=== PATIENT | male | born 1955 | race Caucasian/White ===

== ENCOUNTER 2016-10-11 12:20 | Emergency (ER) | payer MEDICARE ==
[2016-10-11] MEDS ORDERED: NALOXONE 0.4 MG/ML VIAL. IV ONE (12:30)
--- NOTE | 2016-10-11 12:42 | EKG ---
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
--- NOTE | 2016-10-11 12:56 | PHYS DOC ---
Adult General Chief Complaint Chief Complaint: confusion HPI HPI 60-year-old male presenting to the emergency department confused. He was found by his sister at home who called EMS. No medications given prior to arrival. No history of suicide note her medications found at the house. No history of trauma. The patient does have morphine at home that he takes. He was placed on 2 L nasal cannula by EMS. Review of systems is negative for chest pain shortness of breath fevers chills abdominal pain. Positive for nausea with vomiting. All other review of systems is negative unless otherwise noted in history of present illness. ED course: 60-year-old gentleman presenting to the emergency department with confusion and altered mental status. Patient is afebrile in the emergency department. On initial evaluation the patient has pinpoint pupils and his predicted headache and mildly hypoxic suggestive of opioid intoxication. The patient was given 0.4 mg of Narcan which improved the patient's mental status significantly. Otherwise head CT bloodwork EKG and chest x-ray were ordered and obtained. Chest x-ray shows a new mass on the patient's left upper apex. CBC shows mild nonspecific leukocytosis. Lactic acid within normal limits. IV fluids administered in the emergency department. CT head negative. In the emergency department course, the patient became somnolent again and was initiated on a Narcan drip. I felt the patient would probably need hematology oncology consultation which we cannot obtain at our hospital so the patient was admitted to [facility] for further evaluation workup and care. Dr. Tang is accepting physician. Review of Systems Review of Systems SEE ABOVE Current Medications Current Medications Current Medications Medications (Trade) Dose Ordered Sig/Danelle Start Time Stop Time Status Last Admin Dose Admin Naloxone HCl (Narcan) 0.4 mg 1X ONCE 10/11/16 12:30 10/11/16 12:31 UNV Sodium Chloride 1,000 ml @ 1,000 mls/hr 1X ONCE 10/11/16 12:30 10/11/16 13:29 UNV Physical Exam Physical Exam Constitutional: Well developed, well nourished, patient is somnolent initially prior to the Narcan. After Narcan the patient opens eyes spontaneously and follows commands. HENT: Normocephalic, atraumatic, bilateral external ears normal, oropharynx moist, no oral exudates, nose normal. [] Eyes: Pinpoint initially. After Narcan, equal round and reactive. EOMI, conjunctiva normal, no discharge. [] Neck: Normal range of motion, no tenderness, supple, no stridor. [] Cardiovascular:Heart rate regular rhythm, no murmur [] Lungs & Thorax: Bilateral breath sounds clear to auscultation [] Abdomen: Bowel sounds normal, soft, no tenderness, no masses, no pulsatile masses. [] Skin: Warm, dry, no erythema, no rash. [] Back: No tenderness, no CVA tenderness. [] Extremities: No tenderness, no cyanosis, no clubbing, ROM intact, no edema. [] Neurologic: Alert and oriented X 3, normal motor function, normal sensory function, no focal deficits noted. [] Psychologic: Affect normal, judgement normal, mood normal. [] EKG EKG EKG shows sinus rhythm with tachycardia. Mcewen normal. ST segments congruent. Intervals show mild incomplete conduction delay of the QRS. Not suggestive of ACS. Reviewed by myself. [] Radiology/Procedures Radiology/Procedures [] Course & Med Decision Making Course & Med Decision Making Pertinent Labs and Imaging studies reviewed. (See chart for details) [] Dragon Disclaimer Dragon Disclaimer This chart was dictated in whole or in part using Voice Recognition software in a busy, high-work load, and often noisy Emergency Department environment. It may contain unintended and wholly unrecognized errors or omissions. Departure Departure: Impression: Primary Impression: Opioid abuse with intoxication with complication Additional Impressions: Opioid abuse with intoxication delirium Lung mass Metabolic encephalopathy Toxic metabolic encephalopathy Disposition: ADMITTED INPATIENT Condition: IMPROVED Referrals: CHATO FERGUSON MD (PCP) Critical Care Time Critical care time was [41] minutes exclusive of procedures. Critical care time was spent evaluating the patient, ordering the administration of Narcan, reevaluating the patient, starting the patient on a Narcan drip, reviewing the patient's labs and chest x-ray, and documenting. Problem Qualifiers KAM JOSE MD Oct 11, 2016 12:56
--- NOTE | 2016-10-11 13:04 | RAD ---
Portable chest radiograph 10/11/2016 Clinical history: Hypoxia. Possible aspiration. Two portable AP erect digital radiographs of the chest were obtained. Comparison study is dated 04/15/2013. The cardiac silhouette is normal in size. The thoracic aorta is mildly tortuous. Atherosclerotic calcification of the thoracic aorta is seen. A 6 cm masslike opacity is seen involving the left upper lobe. The left hilum is enlarged. These findings are new since the previous study. The right lung is clear. No pneumothorax or pleural effusion is seen. Degenerative changes are seen involving the thoracic spine and both shoulders. Impression: 6 cm masslike opacity is seen involving the left upper lobe. The left hilum is enlarged. These findings are concerning for bronchogenic carcinoma and could be further evaluated with a CT scan of the chest with contrast.
[2016-10-11 13:05] LABS: BASO % 0 % (0-3); EOS # 0.1 x10^3/uL (0.0-0.7); EOS % 1 % (0-3); HEMATOCRIT 34.5 % (39.0-53.0); HEMOGLOBIN 11.5 g/dL (13.0-17.5); LYMPH # 1.4 x10^3/uL (1.0-4.8); LYMPH % 12 % (24-48); MEAN CORPUSCULAR HEMOGLOBIN 28 pg (25-35); MEAN CORPUSCULAR HGB CONC 33 g/dL (31-37); MEAN CORPUSCULAR VOLUME 84 fL (79-100); MONO # 0.7 x10^3/uL (0.0-1.1); MONO % 5 % (0-9); NEUT # 10.1 x10^3uL (1.8-7.7); NEUT % 82 % (31-73); PLATELET COUNT 216 x10^3/uL (140-400); RED BLOOD COUNT 4.12 x10^6/uL (4.30-5.70); RED CELL DISTRIBUTION WIDTH 14.5 % (11.5-14.5); WHITE BLOOD COUNT 12.3 x10^3/uL (4.0-11.0)
[2016-10-11 13:22] LABS: BACTERIA,URINE 0 /HPF (0-FEW); BILIRUBIN,URINE NEG (NEG); CLARITY,URINE CLEAR; COLOR,URINE AMBER; GLUCOSE,URINE NEG (NEG); NITRITE,URINE NEG (NEG); SQUAMOUS EPITHELIAL CELL,UR OCC /LPF; UROBILINOGEN,URINE 1 mg/dL (0.2 mg/dL); WBC,URINE 0 /HPF (0-4)
[2016-10-11 13:23] LABS: AMORPHOUS SEDIMENT,UR PRESENT /HPF; HYALINE CASTS, URINE FEW /HPF
[2016-10-11 13:24] LABS: ACETAMIN < 2.0 mcg/mL (10-30); ETHANOL < 10 mg/dL (0-10); SALIC 1.3 mg/dL (2.8-20.0)
[2016-10-11] MEDS ORDERED: IV NORMAL SALINE 1,000ML 1,000 ML IV ONE (13:30)
[2016-10-11 13:35] LABS: ALBUMIN 2.9 g/dL (3.4-5.0); CALCIUM 8.7 mg/dL (8.5-10.1); CREATININE 1.7 mg/dL (0.7-1.3); DIRECT BILIRUBIN 0.2 mg/dL (0.0-0.2); GFR 41.3; POTASSIUM 3.1 mmol/L (3.5-5.1); TOTAL BILIRUBIN 0.5 mg/dL (0.2-1.0); TOTAL PROTEIN 7.3 g/dL (6.4-8.2)
--- NOTE | 2016-10-11 14:27 | RAD ---
CT scan of the head without contrast 10/11/2016 Clinical History: Altered mental status. Technique: Unenhanced, contiguous, 5 mm axial sections were obtained through the head. One or more of the following individualized dose reduction techniques were utilized for this study: 1. Automated exposure control. 2. Adjustment of the mA and/or kV according to patient size. 3. Use of iterative reconstruction technique. Findings: Comparison study is dated 06/19/2011. There is generalized parenchymal atrophy. Small scattered areas of decreased attenuation are seen within the periventricular and subcortical white matter of both cerebral hemispheres consistent with areas of small vessel ischemic disease. No acute parenchymal abnormality is seen. No extra-axial fluid collection is noted. Impression: No acute intracranial abnormality is seen.
--- NOTE | 2016-10-11 14:28 | RAD ---
Indication abnormal chest x-ray. Noncontrast imaging through the chest was performed. Note is made of a plain film examination of the left chest which was abnormal approximately 90 minutes prior to this exam. Compatible with the finding on plain film is a soft tissue mass in the left upper lobe measuring 5 cm in greatest dimension. There is left hilar and a bulky area of adenopathy in the aorticopulmonary window. There is, additionally, patchy infiltrate in the left upper lobe which likely reflects postobstructive pneumonitis. The constellation of findings is most compatible with primary malignancy with associated metastatic disease to the left hilum and mediastinum. Apart from some minimal scarring the right lung is clear. Imaging through the upper abdomen is unremarkable. IMPRESSION: 5 cm parenchymal mass in the left upper lobe most compatible with primary malignancy. Hilar and mediastinal adenopathy is compatible with local extension into these areas. Patchy infiltrate in the left upper lobe likely reflecting postobstructive pneumonitis. PQRS Compliance Statement: One or more of the following individualized dose reduction techniques were utilized for this examination: 1. Automated exposure control 2. Adjustment of the mA and/or kV according to patient size 3. Use of iterative reconstruction technique
[2016-10-11] MEDS ORDERED: NALOXONE 2 MG in IV DEXTROSE 5% 500 ML IV ONE (14:30)
[2016-10-11 15:27] VITALS: BP 134/75
== END 2016-10-11 15:38 | disposition other institution (70) ==
LOC: ER 12:20
DX: F11.121 Opioid abuse with intoxication delirium (principal); R91.8 Other nonspecific abnormal finding of lung field; G92 Toxic encephalopathy
CPT/HCPCS: 36415; 51701; 70450; 71010; 71250; 80048; 80076; 81001; 83605; 83690; 83880; 83930; 84484; 85027; 93005; 96361; 96365; 96376; 99291; G0480; J2310; J7030

== ENCOUNTER 2017-06-19 13:49 | Inpatient (IN) | payer MEDICARE ==
[~2017-06-19] VITALS: Ht 182.9 cm; Wt 96.3 kg
[2017-06-19] VITALS (7 sets, daily range): BP systolic 82–104; BP diastolic 46–65
--- NOTE | 2017-06-19 14:08 | ED.ADGEN ---
Past History Past Medical History: Depression, GERD, High Cholesterol, Hypertension, Hypothyroid Past Surgical History: Other Drug Use: None Adult General Chief Complaint Chief Complaint low blood pressure HPI HPI Patient is a 61 year old male who presents with hypotension. Patient was being seen in his infusion clinic for chemotherapy for lung cancer. Patient was found to have blood pressure in the 70s. Patient was taken off his blood pressure medication yesterday by his oncologist due to a blood pressure in the 80s. He reports some lightheadedness and dizziness when he gets up and moves around but otherwise feels like his normal self. Last week he did have some diarrhea but this is since resolved, he denies any chest pain, no shortness of breath, no abdominal pain, no fevers. No dysuria , no signs of blood loss Oncologist is Dr. Peters Review of Systems Review of Systems Constitutional: Denies fever or chills [] Eyes: Denies change in visual acuity, redness, or eye pain [] HENT: Denies nasal congestion or sore throat [] Respiratory: Denies cough or shortness of breath [] Cardiovascular: denies chest apin GI: Denies abdominal pain, nausea, vomiting, bloody stools or diarrhea [] : Denies dysuria or hematuria [] Musculoskeletal: Denies back pain or joint pain [] Integument: Denies rash or skin lesions [] Neurologic: Denies headache, focal weakness or sensory changes [] Current Medications Current Medications Current Medications Medications (Trade) Dose Ordered Sig/Danelle Start Time Stop Time Status Last Admin Dose Admin Piperacillin Sod/ Tazobactam Sod (Zosyn Per Pharmacy) 1 each PRN DAILY PRN 06/19/17 15:00 Sodium Chloride 1,000 ml @ 1,000 mls/hr 1X ONCE 06/19/17 15:30 06/19/17 16:29 Vancomycin HCl (Vanco Per Pharmacy) 1 each 1X ONCE 06/19/17 15:30 06/19/17 15:42 DC Allergies Allergies Allergies Coded Allergies Type Severity Reaction Last Updated Verified No Known Drug Allergies 10/11/16 No Physical Exam Physical Exam Constitutional: Well developed, well nourished, no acute distress, non-toxic appearance.slightly pale HENT: Normocephalic, atraumatic, bilateral external ears normal, oropharynx moist, no oral exudates, nose normal. [] Eyes: PERRLA, EOMI, conjunctiva normal, no discharge. [] Neck: Normal range of motion, no tenderness, supple, no stridor. [] Cardiovascular:Heart rate regular with regular rhythm, no murmur [] Lungs & Thorax: Bilateral breath sounds clear to auscultation, no wheeze or crackles Abdomen: Bowel sounds normal, soft, no tenderness, no masses, no pulsatile masses. [] Skin: Warm, dry, no erythema, no rash. [] Back: No tenderness, no CVA tenderness. [] Extremities: No tenderness, no cyanosis, no clubbing, ROM intact, no edema. [] Neurologic: Alert and oriented X 3, normal motor function, normal sensory function, no focal deficits noted. [] Psychologic: Affect normal, judgement normal, mood normal. [] Current Patient Data Lab Results Laboratory Tests Test 06/19/17 14:17 06/19/17 14:57 06/19/17 15:27 White Blood Count 6.5 x10^3/uL (4.0-11.0) Red Blood Count 2.83 x10^6/uL (4.30-5.70) L Hemoglobin 8.8 g/dL (13.0-17.5) L Hematocrit 27.2 % (39.0-53.0) L Mean Corpuscular Volume 96 fL (79-100) Mean Corpuscular Hemoglobin 31 pg (25-35) Mean Corpuscular Hemoglobin Concent 32 g/dL (31-37) Red Cell Distribution Width 18.3 % (11.5-14.5) H Platelet Count 245 x10^3/uL (140-400) Neutrophils (%) (Auto) 79 % (31-73) H Lymphocytes (%) (Auto) 14 % (24-48) L Monocytes (%) (Auto) 7 % (0-9) Eosinophils (%) (Auto) 0 % (0-3) Basophils (%) (Auto) 0 % (0-3) Neutrophils # (Auto) 5.1 x10^3uL (1.8-7.7) Lymphocytes # (Auto) 0.9 x10^3/uL (1.0-4.8) L Monocytes # (Auto) 0.5 x10^3/uL (0.0-1.1) Eosinophils # (Auto) 0.0 x10^3/uL (0.0-0.7) Basophils # (Auto) 0.0 x10^3/uL (0.0-0.2) Sodium Level 139 mmol/L (136-145) Potassium Level 3.7 mmol/L (3.5-5.1) Chloride Level 102 mmol/L (98-107) Carbon Dioxide Level 29 mmol/L (21-32) Anion Gap 8 (6-14) Blood Urea Nitrogen 15 mg/dL (8-26) Creatinine 1.3 mg/dL (0.7-1.3) Estimated GFR (Cockcroft-Gault) 56.1 BUN/Creatinine Ratio 12 (6-20) Glucose Level 140 mg/dL (70-99) H Lactic Acid Level 2.3 mmol/L (0.4-2.0) H Calcium Level 9.5 mg/dL (8.5-10.1) Total Bilirubin 0.3 mg/dL (0.2-1.0) Aspartate Amino Transferase (AST) 28 U/L (15-37) Alanine Aminotransferase (ALT) 48 U/L (16-63) Alkaline Phosphatase 94 U/L (46-116) Total Protein 6.4 g/dL (6.4-8.2) Albumin 2.6 g/dL (3.4-5.0) L Albumin/Globulin Ratio 0.7 (1.0-1.7) L Stool Occult Blood Negative (NEG) Urine Collection Type Unknown Urine Color Yellow Urine Clarity Hazy Urine pH 7.0 Urine Specific [place] 1.015 Urine Protein Trace (NEG-TRACE) Urine Glucose (UA) Neg mg/dL (NEG) Urine Ketones (Stick) Neg mg/dL (NEG) Urine Blood Neg (NEG) Urine Nitrite Neg (NEG) Urine Bilirubin Neg (NEG) Urine Urobilinogen Dipstick 1 mg/dL (0.2 mg/dL) Urine Leukocyte Esterase Neg (NEG) Urine RBC 1-2 /HPF (0-2) Urine WBC 1-4 /HPF (0-4) Urine Squamous Epithelial Cells Few /LPF Urine Bacteria 0 /HPF (0-FEW) Urine Hyaline Casts Many /HPF Urine Mucus Marked /LPF EKG EKG 1422: 66 bpm, sinus, normal axis, normal intervals, no ST elevation or depression, nonischemic T waves. Interpreted by me[] Radiology/Procedures Radiology/Procedures CXR: IMPRESSION: Interval improved aeration of the left upper lobe. Similar left upper lobe parenchymal mass. Right chest wall infusion port catheter with distal tip projecting over the expected region of the superior vena cava. No pneumothorax. [] Course & Med Decision Making Course & Med Decision Making Pertinent Labs and Imaging studies reviewed. (See chart for details) Pt given 1 L NS bolus. Labs/lactate/blood cultures ordered with UA. Pt's has decreasing hgb, in 10s in March. Could be from chemo but fecal occult performed and no acute blood noted. Pt denies any signs of rectal bleeding. BP improved with 1 L NS bolus. Lactate 2.3. IV zosyn ordered after blood cultures obtained. Second liter fluid bolus ordered. CXR did not show pna, UA does not show UTI. I added vanc for possible bacteremia, but Lactic acidosis may be 2/2 to dehydration from recent diarrhea. I spoke with Dr. Hernandez, who accepted the pt for inpt admission. Total critical care time: 35 minutes Final Impression Final Impression Sepsis Orthostatic Hypotension Anemia Dizziness Problems: Dragon Disclaimer Dragon Disclaimer This electronic medical record was generated, in whole or in part, using a voice recognition dictation system. TWYLA HOLGUIN MD Jun 19, 2017 14:08
[2017-06-19] MEDS ORDERED: IV NORMAL SALINE 1,000ML 1,000 ML IV ONE ×3 (14:15→15:30)
[2017-06-19 14:32] LABS: BASO % 0 % (0-3); EOS % 0 % (0-3); HEMATOCRIT 27.2 % (39.0-53.0); HEMOGLOBIN 8.8 g/dL (13.0-17.5); LYMPH # 0.9 x10^3/uL (1.0-4.8); LYMPH % 14 % (24-48); MEAN CORPUSCULAR HEMOGLOBIN 31 pg (25-35); MEAN CORPUSCULAR HGB CONC 32 g/dL (31-37); MEAN CORPUSCULAR VOLUME 96 fL (79-100); MONO # 0.5 x10^3/uL (0.0-1.1); MONO % 7 % (0-9); NEUT # 5.1 x10^3uL (1.8-7.7); NEUT % 79 % (31-73); PLATELET COUNT 245 x10^3/uL (140-400); RED BLOOD COUNT 2.83 x10^6/uL (4.30-5.70); RED CELL DISTRIBUTION WIDTH 18.3 % (11.5-14.5); WHITE BLOOD COUNT 6.5 x10^3/uL (4.0-11.0)
--- NOTE | 2017-06-19 14:32 | EKG ---
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
[2017-06-19 14:48] LABS: ALBUMIN 2.6 g/dL (3.4-5.0); ALBUMIN/GLOBULIN RATIO 0.7 (1.0-1.7); CALCIUM 9.5 mg/dL (8.5-10.1); CREATININE 1.3 mg/dL (0.7-1.3); GFR 56.1; POTASSIUM 3.7 mmol/L (3.5-5.1); TOTAL BILIRUBIN 0.3 mg/dL (0.2-1.0); TOTAL PROTEIN 6.4 g/dL (6.4-8.2)
[2017-06-19] MEDS ORDERED: PIP/TAZO PER PHARMACY MC PRN (15:00)
--- NOTE | 2017-06-19 15:18 | RAD ---
Chest radiograph 06/19/2017 3:01 PM INDICATION: Lung cancer COMPARISON: Chest radiograph October 11, 2016 TECHNIQUE: Frontal view of the chest is provided. FINDINGS: The cardiomediastinal silhouette is within normal limits. Right chest wall infusion port catheter is identified with the distal tip projecting over the expected region of the superior vena cava. There are no pleural effusions. There is no pulmonary vascular congestion. There is no pneumothorax. There is demonstration of a left upper lobe parenchymal opacity measuring 6.0 cm. Similar patchy interstitial changes noted in the inferior aspect of the right upper lobe. There is improved aeration of the left upper lobe. IMPRESSION: Interval improved aeration of the left upper lobe. Similar left upper lobe parenchymal mass. Right chest wall infusion port catheter with distal tip projecting over the expected region of the superior vena cava. No pneumothorax. Electronically signed by: Karina Hyde MD (06/19/2017 3:14 PM) [id number]
[2017-06-19 15:25] LABS: FECAL OB PT NEGATIVE (NEG)
[2017-06-19] MEDS ORDERED: VANCOMYCIN PER PHARMACY MC ONE (15:30)
[2017-06-19] MEDS ORDERED: PIPERACILLIN/TAZO IV Push 4.5 GM VIAL. IVP ONE ×2 (15:47)
[2017-06-19] MEDS ORDERED: IV NORMAL SALINE 50ML 50 ML ONE (15:48)
[2017-06-19 15:59] LABS: BILIRUBIN,URINE NEG (NEG); CLARITY,URINE HAZY; COLOR,URINE YELLOW; GLUCOSE,URINE NEG (NEG); NITRITE,URINE NEG (NEG); UROBILINOGEN,URINE 1 mg/dL (0.2 mg/dL)
[2017-06-19 16:00] LABS: BACTERIA,URINE 0 /HPF (0-FEW); HYALINE CASTS, URINE MANY /HPF; SQUAMOUS EPITHELIAL CELL,UR FEW /LPF
[2017-06-19] MEDS ORDERED: PIPERACILLIN/TAZOBACTAM 4.5 GM in IV NORMAL SALINE 50ML 50 ML IV SCH (16:00)
[2017-06-19] MEDS ORDERED: VANCOMYCIN 2 GM in IV NORMAL SALINE 500ML 500 ML IV ONE (17:00)
--- NOTE | 2017-06-19 18:24 | HP ---
ADMIT DATE: 06/19/2017 HISTORY OF PRESENT ILLNESS: The patient is a 61-year-old male patient who apparently went to [facility] for his scheduled chemotherapy that he gets every 3 weeks for his lung cancer and apparently, was found to be hypotensive with a blood pressure in his 70s. Apparently, his oncologist took him off his blood pressure medication yesterday and the patient did report that he is having shortness of breath, felt dizzy, shaky, and fell actually twice. He stated that he has some diarrhea last week that has since resolved. He denied any chest pain, denied any cough, phlegm or hemoptysis. Denied any swelling of the legs. He was evaluated in the Emergency Room and initial evaluation showed his blood pressure was low and was given a liter of fluid as well as started on IV antibiotic, was admitted for further evaluation and treatment. By the time I saw him in the ICU, he was feeling slightly better. PAST MEDICAL HISTORY: Significant for hypertension, hyperlipidemia, hypothyroidism, chronic obstructive pulmonary disease, and chronic back pain. He was diagnosed with lung cancer about a year ago, discovered incidentally; he has also generalized osteoarthritis. PAST SURGICAL HISTORY: Significant for right ankle arthrodesis, bilateral rotator cuff repair, right inguinal hernia repair, periumbilical hernia repair, and left ulnar nerve transposition. ALLERGIES: He has no known drug allergies. MEDICATIONS: He is currently on the following medication. FAMILY HISTORY: His family significant for the fact that his father at age of 82, because of colon cancer. Mother at the age of 72, because of lung cancer. His eldest sister has hypertension. He has in total of 4 brothers and 4 sisters. SOCIAL HISTORY: He is , has 1 son. Quit smoking and drinking about 10 years ago. He used to smoke 2 packs a day for more than 30 years, used to be also a heavy alcohol drinker, but quit more than 10 years ago. 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 REVIEW OF SYSTEMS: The patient denied any blurring of vision, cataract, glaucoma or macular degeneration. Denied any earache, he did complain of tinnitus, but denied any sensorineural deafness. Denied any nosebleeds, stuffy nose or postnasal drip. Denied any sore throat, sore tongue, toothache, hoarseness of voice or difficulty swallowing. He did lose about 10 pounds over a week now. Denied any nausea, vomiting, diarrhea or constipation. Denied any hematemesis, melena or hematochezia. Denied any dysuria, frequency or hematuria. Denied any chest pain, did complain of shortness of breath. Denied any cough, phlegm or hemoptysis. Denied any chills, rigors or fever. He did complain of dizziness, lightheadedness, and had fallen twice. PHYSICAL EXAMINATION: GENERAL: On arrival to the Emergency Room, he looked well and was clearly, in no apparent respiratory distress, pale, but no jaundice, cyanosis, or thyromegaly. No jugular venous distension. No limb edema. VITAL SIGNS: His heart rate was 88, blood pressure was 104/66, temperature was 97.9, respiratory rate was 16, and oxygen saturation was 98% on 3 liters of oxygen. HEAD, EYES, EARS, NOSE, AND THROAT: Showed normocephalic, atraumatic. NECK: Supple. HEART: Showed normal first and second sounds. No gallop, rub or murmur. CHEST: Clear to auscultation. No crepitation or rhonchi. ABDOMEN: Distended, soft, and nontender. No guarding or rigidity. No organomegaly. All hernial orifices intact. Bowel sounds normal. NEUROLOGIC: He is awake, alert, responding appropriately. All cranial nerves intact. EXTREMITIES: He moves all extremities without difficulty. He ambulates without assistance or assistive devices. LABORATORY DATA: While in the Emergency Room, he had lab work done, which showed that his white cell count was 6500, hemoglobin 8.8, hematocrit 27.2, MCV 96, and platelet count 245,000. His serum sodium was 139, potassium 3.7, chloride 102, bicarbonate 29, anion gap of 8, BUN 15, creatinine 1.3, estimated GFR was 56 mL per minute. His glucose was 140, calcium 9.5. Total bilirubin, AST, ALT, alkaline phosphatase were normal. Total protein 6.4, albumin 2.6. His lactic acid was 2.3. His urinalysis showed the urine was yellow, hazy with a pH of 7, specific gravity 1.015. There was a trace of protein, negative for glucose, ketones, blood, nitrite, and leukocyte esterase. There was only 1 to 2 rbc's, 1 to 4 wbc's, 0 bacteria. His chest x-ray showed that the patient has cardiomediastinal silhouette within normal limits. Right chest wall has infusion port. Catheter is identified with the distal tip projecting over the expected region of the superior vena cava. There are no pleural effusion. There is no pulmonary vascular congestion. There is no pneumothorax. There is demonstration of a left upper lobe parenchymal opacity measuring about 6 cm similar much interstitial changes noted in the inferior aspect of the right upper lobe. There is imposed of aeration of the left upper lobe with the impression that the patient interval improved aeration of the left upper lobe similar left upper lobe parenchymal mass, right chest wall infusion, port catheter with distal tip projecting over the expected region, inferior vena cava, no pneumothorax. ASSESSMENT AND PLAN: The patient was admitted with symptomatic hypotension, questionable sepsis, although his white cell count is not high. He has a Port-A-Cath that could be the source of infection. He was started on intravenous antibiotic in the form of Zosyn and vancomycin as well as intravenous fluids. We will monitor him closely and decide on further management accordingly. SHAHZAD DUARTE MD DR: EVE/gio JOB#: [id number] / [id number]
[2017-06-19] MEDS ORDERED: RISP3TAB23 PO (19:15)
[2017-06-19] MEDS ORDERED: DEXT30TA2 PO (19:15)
[2017-06-19] MEDS ORDERED: LEVO100T5 PO (19:15)
[2017-06-19] MEDS ORDERED: CARI350T PO (19:15)
[2017-06-19] MEDS ORDERED: CHOL10003 PO (19:15)
[2017-06-19] MEDS ORDERED: SIMV40TA3 PO (19:15)
[2017-06-19] MEDS ORDERED: TAMS0.4C2 PO (19:15)
[2017-06-19] MEDS ORDERED: FOLI1TAB16 PO (19:15)
[2017-06-19] MEDS ORDERED: OLAN20TA3 PO (19:15)
[2017-06-19] MEDS ORDERED: LAMO200T3 PO (19:15)
[2017-06-19] MEDS ORDERED: DEXA4TAB63 PO (19:15)
[2017-06-19] MEDS ORDERED: OMEG100021 PO (19:15)
[2017-06-19] MEDS ORDERED: OMEP40CA5 PO (19:15)
[2017-06-19] MEDS ORDERED: MORP30TA PO (19:16)
[2017-06-19] MEDS ORDERED: CARISOPRODOL 350 MG TABLET PO SCH (21:00)
[2017-06-19] MEDS: IV NORMAL SALINE 1,000ML 1,000 ML IV SCH (21:07)
[2017-06-19] MEDS: lamoTRIgine 100 MG TABLET. PO SCH (21:08)
[2017-06-19] MEDS: OLANZapine 10 MG TABLET PO SCH (21:08)
[2017-06-19] MEDS: risperiDONE 1 MG TABLET. PO SCH (21:08)
[2017-06-19] MEDS: MORPHINE 100 MG PO SCH (21:19)
[2017-06-19] MEDS: VANCOMYCIN PER PHARMACY MC PRN (21:59)
[2017-06-19] MEDS: PIPERACILLIN/TAZOBACTAM 4.5 GM in IV NORMAL SALINE 50ML 50 ML IV SCH (22:39)
[2017-06-20] VITALS (25 sets, daily range): BP systolic 74–107; BP diastolic 50–70
[2017-06-20] MEDS: IV NORMAL SALINE 1,000ML 1,000 ML IV SCH ×4 (01:32→22:02)
[2017-06-20] MEDS ORDERED: ZOLPIDEM 5 MG TABLET. PO PRN (02:30)
[2017-06-20] MEDS: PIPERACILLIN/TAZOBACTAM 4.5 GM in IV NORMAL SALINE 50ML 50 ML IV SCH ×4 (06:09→22:02)
[2017-06-20] MEDS: VANCOMYCIN 1.5 GM in IV NORMAL SALINE 500ML 500 ML IV SCH ×2 (06:19→17:41)
[2017-06-20 06:44] LABS: BASO % 1 % (0-3); EOS # 0.1 x10^3/uL (0.0-0.7); EOS % 2 % (0-3); HEMATOCRIT 22.6 % (39.0-53.0); HEMOGLOBIN 7.4 g/dL (13.0-17.5); LYMPH # 1.7 x10^3/uL (1.0-4.8); LYMPH % 39 % (24-48); MEAN CORPUSCULAR HEMOGLOBIN 32 pg (25-35); MEAN CORPUSCULAR HGB CONC 33 g/dL (31-37); MEAN CORPUSCULAR VOLUME 97 fL (79-100); MONO # 0.5 x10^3/uL (0.0-1.1); MONO % 11 % (0-9); NEUT % 47 % (31-73); PLATELET COUNT 195 x10^3/uL (140-400); RED BLOOD COUNT 2.34 x10^6/uL (4.30-5.70); RED CELL DISTRIBUTION WIDTH 17.5 % (11.5-14.5); WHITE BLOOD COUNT 4.3 x10^3/uL (4.0-11.0)
[2017-06-20 06:57] LABS: ALBUMIN 2.1 g/dL (3.4-5.0); ALBUMIN/GLOBULIN RATIO 0.7 (1.0-1.7); CALCIUM 8.4 mg/dL (8.5-10.1); POTASSIUM 3.3 mmol/L (3.5-5.1); TOTAL BILIRUBIN 0.2 mg/dL (0.2-1.0); TOTAL PROTEIN 5.2 g/dL (6.4-8.2)
[2017-06-20] MEDS: OMEGA-3 FATTY ACIDS/FISH OIL 1,000 MG CAPSULE. PO SCH (07:50)
[2017-06-20] MEDS: PANTOPRAZOLE 40 MG TABLET. PO SCH (07:51)
[2017-06-20] MEDS: FOLIC ACID 1 MG TABLET PO SCH (07:51)
[2017-06-20] MEDS: LEVOTHYROXINE 100 MCG TABLET PO SCH (07:51)
[2017-06-20] MEDS: TAMSULOSIN 0.4 MG CAP.ER.24H. PO SCH (07:52)
[2017-06-20] MEDS: HYDROCORTISONE SOD SUCC/PF 100 MG/2 ML VIAL. IV SCH ×3 (07:52→22:01)
[2017-06-20] MEDS ORDERED: POTASSIUM CHLORIDE 20 MEQ TABLET.ER. PO ONE (08:00)
[2017-06-20] MEDS: NON FORMULARY ITEM (Dextroamphetamine/Amphetamine (Adderall 30 Mg Tablet) 30 MG) PO SCH (09:00)
[2017-06-20] MEDS: SIMVASTATIN 40 MG TABLET. PO SCH (09:06)
[2017-06-20] MEDS: lamoTRIgine 100 MG TABLET. PO SCH ×2 (09:07→21:01)
[2017-06-20] MEDS: risperiDONE 1 MG TABLET. PO SCH ×2 (09:07→21:00)
[2017-06-20] MEDS: MORPHINE 100 MG PO SCH ×2 (09:08→20:59)
[2017-06-20] MEDS: CARISOPRODOL 350 MG TABLET PO SCH ×2 (09:08→21:01)
--- NOTE | 2017-06-20 20:02 | PN ---
DATE: 06/20/2017 SUBJECTIVE: The patient is resting, slightly propped up in bed, and in no apparent distress. He denied any complaint; however, the nursing staff said that his blood pressure continued to be on the lower side despite receiving almost 4 liters of IV fluid and we did add also hydrocortisone given that he was on dexamethasone before. PHYSICAL EXAMINATION: GENERAL: When I examined him today, he looked pale, no jaundice, cyanosis, or thyromegaly. No jugular venous distension. No lower limb edema. VITAL SIGNS: His heart rate was 56, blood pressure was 87/61, temperature was 97.6, respiratory rate was 18, and oxygen saturation was 99% on 3 liters of oxygen nasal cannula. HEAD, EYES, EARS, NOSE AND THROAT: Showed normocephalic, atraumatic. NECK: Supple. HEART: Showed normal first and second sounds. No gallop, rub or murmur. CHEST: Clear to auscultation. No crepitation or rhonchi. ABDOMEN: Distended, soft, nontender. NEUROLOGIC: He is awake, alert, responding appropriately. Cranial nerves are intact. He moves extremities without difficulty. He ambulates without assistance or assistive devices. His intake over the last 24 hours was 2430, output was 450. LABORATORY DATA: Lab work showed white cell count of 4300, hemoglobin 7.4, hematocrit 22.6, MCV 97, and platelet count of 195,000. His serum sodium was 141, potassium 3.3, chloride 107, bicarbonate 29, anion gap of 5, BUN 12, creatinine 1, estimated GFR was 76 mL per minute, his glucose 106, calcium was 8.4. Total bilirubin, ALT, alkaline phosphatase were normal. Total protein was 5.1, albumin was 2.1. Urinalysis is unremarkable. His stool for occult blood was negative. ASSESSMENT: This is a 61-year-old male patient, who is on chemotherapy for his lung cancer that he gets every 3 weeks and apparently was found to be hypotensive with the blood pressure in the 70s. His oncologist took him off all his blood pressure medication and today before he did complain that he has shortness of breath, feels dizzy ____ had diarrhea the day before, and basically was admitted with hypotension, was started on IV fluid and did receive almost a total of 4 liters of IV fluid. I did add hydrocortisone hemisuccinate 100 mg 3 times a day as he is receiving dexamethasone for his chemotherapy. His H and H is low and has dropped down from 8.8 and 27 to 7.4 and 22.6. His BUN and creatinine is improving from 15 and 1.3 to 12 and 1. PLAN: Plan is to continue with IV fluid, continue with the IV antibiotics. Though so far his blood cultures are negative and we will repeat all his lab work and still so far is Hemoccult negative, I will repeat all his labs tomorrow and if he remains stable, we can discharge him home. His orthostatic blood pressure this afternoon showed his lying was 101/68 with the heart rate of 69, sitting 97/61 with the heart rate of 63, and standing was 95/58 with the heart rate of 74. SHAHZAD DUARTE MD DR: EVE/gio JOB#: [id number] / [id number]
[2017-06-20] MEDS: OLANZapine 10 MG TABLET PO SCH (21:00)
[2017-06-21] VITALS (10 sets, daily range): BP systolic 100–131; BP diastolic 64–79
[2017-06-21] MEDS: PIPERACILLIN/TAZOBACTAM 4.5 GM in IV NORMAL SALINE 50ML 50 ML IV SCH ×2 (03:47→09:16)
[2017-06-21] MEDS: IV NORMAL SALINE 1,000ML 1,000 ML IV SCH ×2 (03:50→10:30)
[2017-06-21 05:23] LABS: HEMATOCRIT 23.5 % (39.0-53.0); HEMOGLOBIN 7.7 g/dL (13.0-17.5); RED BLOOD COUNT 2.41 x10^6/uL (4.30-5.70); RED CELL DISTRIBUTION WIDTH 17.5 % (11.5-14.5); WHITE BLOOD COUNT 5.6 x10^3/uL (4.0-11.0)
[2017-06-21 05:37] LABS: ALBUMIN 2.1 g/dL (3.4-5.0); ALBUMIN/GLOBULIN RATIO 0.6 (1.0-1.7); CALCIUM 8.4 mg/dL (8.5-10.1); POTASSIUM 4.1 mmol/L (3.5-5.1); TOTAL BILIRUBIN 0.2 mg/dL (0.2-1.0); TOTAL PROTEIN 5.4 g/dL (6.4-8.2)
[2017-06-21] MEDS: HYDROCORTISONE SOD SUCC/PF 100 MG/2 ML VIAL. IV SCH (05:48)
[2017-06-21] MEDS: VANCOMYCIN 1.5 GM in IV NORMAL SALINE 500ML 500 ML IV SCH (05:49)
[2017-06-21] MEDS: VANCOMYCIN PER PHARMACY MC PRN (05:52)
[2017-06-21] MEDS: PANTOPRAZOLE 40 MG TABLET. PO SCH (07:41)
[2017-06-21] MEDS: MORPHINE 100 MG PO SCH (07:41)
[2017-06-21] MEDS: LEVOTHYROXINE 100 MCG TABLET PO SCH (07:42)
[2017-06-21] MEDS: NON FORMULARY ITEM (Dextroamphetamine/Amphetamine (Adderall 30 Mg Tablet) 30 MG) PO SCH (09:00)
[2017-06-21] MEDS: CARISOPRODOL 350 MG TABLET PO SCH (09:15)
[2017-06-21] MEDS: lamoTRIgine 100 MG TABLET. PO SCH (09:15)
[2017-06-21] MEDS: TAMSULOSIN 0.4 MG CAP.ER.24H. PO SCH (09:15)
[2017-06-21] MEDS: OMEGA-3 FATTY ACIDS/FISH OIL 1,000 MG CAPSULE. PO SCH (09:15)
[2017-06-21] MEDS: risperiDONE 1 MG TABLET. PO SCH (09:15)
[2017-06-21] MEDS: SIMVASTATIN 40 MG TABLET. PO SCH (09:16)
[2017-06-21] MEDS: FOLIC ACID 1 MG TABLET PO SCH (09:16)
--- NOTE | 2017-06-21 14:05 | DS ---
DATE OF DISCHARGE: 06/21/2017 HOSPITAL COURSE: The patient is a 61-year-old male patient, who apparently came to the Emergency Room as a referral from the chemotherapy center as he was found to have hypertensive. His blood pressure medications were discontinued the day before by his oncologist and apparently he fell twice at home. By time he arrived to the Emergency Room, his systolic pressure was only 70 and the patient was admitted to the ICU, was given large amount of IV fluid. I did also start him on steroids, wanted to find out that he is already on dexamethasone. His blood pressure has gradually improved. His intake over the last 24 hours was 2480, output was 1550. PHYSICAL EXAMINATION: GENERAL: When I examined today, he looked well and was clearly in no apparent respiratory distress, slightly pale, no jaundice, cyanosis, or thyromegaly. No jugular venous distension. No lower limb edema. VITAL SIGNS: His heart rate was 88, blood pressure was 131/79, temperature was 97, respiratory rate was 18 and oxygen saturation was 95% on 3 liters of oxygen. HEAD, EYES, EARS, NOSE AND THROAT: Normocephalic, atraumatic. NECK: Supple. HEART: Showed normal first and second heart sounds with no gallop, rub or murmur. CHEST: Clear to auscultation. No crepitation or rhonchi. ABDOMEN: Distended, soft, nontender. NEUROLOGIC: He was awake, alert, responding appropriately. All cranial nerves intact. He moves extremities without difficulty, ambulates without assistance or assistive devices. His intake was 6900, output was 1550. LABORATORY DATA: This morning showed a serum sodium 144, potassium 4.1, chloride 109, bicarbonate 28, anion gap of 7, BUN 11, creatinine 1, estimated GFR was 76 mL per minute, his glucose 176, calcium was 8.4. Total bilirubin, AST, ALT, alkaline phosphatase were normal. Total protein 5.4, albumin 2.1. His morning cortisol was low at 1.37. However, he is on 4 mg dexamethasone daily. White cell count was 5600, hemoglobin 7.7, hematocrit 23.5, MCV 97 and platelet count of 189,000. DISCHARGE MEDICATIONS: He was discharged home to continue on Soma 350 mg 4 times a day, cholecalciferol vitamin D 1000 international unit once a day, dexamethasone 4 mg p.o. daily, dextromethorphan amphetamine for Adderall 30 mg daily, folic acid 1 mg daily, lamotrigine for Lamictal 200 mg twice a day, levothyroxine sodium 100 mcg once a day, morphine sulfate 100 mg p.o. b.i.d., olanzapine for Zyprexa 20 mg at bedtime, omega-3 fatty acid 1000 mg daily, omeprazole 40 mg once a day, Risperdal 3 mg p.o. b.i.d., simvastatin 40 mg at bedtime, tamsulosin 0.4 mg 1 capsule p.o. daily. FINAL DISCHARGE DIAGNOSES: multifactorial including diarrhea as well as antihypertensive medication, resolved. The patient is known to have lung cancer, status post chemotherapy. He receives every 3 weeks, attention deficit hyperactivity syndrome for which he is on Adderall, hypothyroidism, hyperlipidemia, benign prostatic hypertrophy. SHAHZAD DUARTE MD DR: EVE/gio JOB#: [id number] / [id number]
== END 2017-06-21 12:30 | disposition home or self-care (01) | DRG 314 ==
LOC: ER 13:49 → UNDOADMIN 15:37 → ICU 15:37
PROVIDERS: ADMIT Internal Medicine; ATTEND Internal Medicine
DX: I95.89 Other hypotension (principal); E43 Unspecified severe protein-calorie malnutrition; C34.90 Malignant neoplasm of unspecified part of unspecified bronchus or lung; D64.9 Anemia, unspecified; E03.9 Hypothyroidism, unspecified; E78.5 Hyperlipidemia, unspecified; F90.9 Attention-deficit hyperactivity disorder, unspecified type; N40.0 Benign prostatic hyperplasia without lower urinary tract symptoms; I10 Essential (primary) hypertension; M54.9 Dorsalgia, unspecified; G89.29 Other chronic pain; J44.9 Chronic obstructive pulmonary disease, unspecified; K21.9 Gastro-esophageal reflux disease without esophagitis; M15.9 Polyosteoarthritis, unspecified; F32.9 Major depressive disorder, single episode, unspecified; R19.7 Diarrhea, unspecified; W19.XXXA Unspecified fall, initial encounter; Z80.0 Family history of malignant neoplasm of digestive organs; Z82.49 Family history of ischemic heart disease and other diseases of the circulatory system; Z87.891 Personal history of nicotine dependence; Z92.21 Personal history of antineoplastic chemotherapy; Y93.89 Activity, other specified; Y99.8 Other external cause status; Y92.009 Unspecified place in unspecified non-institutional (private) residence as the place of occurrence of the external cause; Z98.1 Arthrodesis status
CPT/HCPCS: 36415; 71045; 80053; 80202; 81001; 82274; 82533; 83605; 83880; 85025; 85027; 86850; 86900; 86901; 87040; 87641; 93005; 96365; J2543; J3370; J7040; 99291-25; J7030